=== PATIENT | female | born 1965 | race Caucasian/White ===

== ENCOUNTER 2021-12-23 16:18 | Emergency (ER) | payer BC, OTHER ==
[2021-12-23 16:46] VITALS: TEMP 98; BMI 24.9
[2021-12-23 19:38] VITALS: BP 111/64; PULSE 61
== END 2021-12-23 19:30 | disposition home or self-care (01) ==
LOC: JER 16:18
DX: R51.9 Headache, unspecified (principal); R11.0 Nausea; S09.93XA Unspecified injury of face, initial encounter; W01.0XXA Fall on same level from slipping, tripping and stumbling without subsequent striking against object, initial encounter
CPT/HCPCS: 70450-TC; 70486-TC; 99284-25